=== PATIENT | female | born 1980 | race Caucasian/White ===

== ENCOUNTER → 2020-03-19 | Outpatient (CLI) | payer OTHER ==
--- NOTE | 2020-03-19 11:55 | CARD ---
MR#: [id number] Date of Study: 03/19/2020 Ordering Physician: FARIDEH LANG, Referring Physician: FARIDEH LANG, Tech: Dina Vera [facility] APPROVED REPORT EXAM: Two-dimensional and M-mode echocardiogram with Doppler and color Doppler. Other Information Quality : Good INDICATION Supraventricular Tachycardia 2D DIMENSIONS RVDd2.1 (2.9-3.5cm)Left Atrium(2D)2.8 (1.6-4.0cm) IVSd0.7 (0.7-1.1cm)Aortic Root(2D)3.0 (2.0-3.7cm) LVDd5.0 (3.9-5.9cm)LVOT Diameter2.2 (1.8-2.4cm) PWd0.7 (0.7-1.1cm)LVDs3.1 (2.5-4.0cm) FS (%) 30.0 %SV81.1 ml LVEF(%)60.0 (>50%) Aortic Valve AoV Peak Gian.135.1cm/sAoV VTI26.3cm AO Peak GR.7.3mmHgLVOT Peak Gian.117.0cm/s AO Mean GR.4mmHgAVA (VMAX)3.20cm2 ROWENA (VTI)3.40cm2 Mitral Valve MV E Tkvqzrui88.6cm/sMV DECEL SCFU468xt MV A Wjpqjejd30.9cm/sE/A Ratio1.8 Tricuspid Valve TR P. Cdgztqay040or/sRAP RRESCRYL8wjMx TR Peak Gr.59blLuXIFT67gjMe Pulmonary Vein S1 Snzetzav92.6cm/sD2 Iwvddroe87.9cm/s LEFT VENTRICLE The left ventricle is normal size. There is normal left ventricular wall thickness. The left ventricu lar systolic function is normal and the ejection fraction is within normal range. The Ejection Fracti on is 55-60%. There is normal LV segmental wall motion. The left ventricular diastolic function and f illing is normal for age. RIGHT VENTRICLE The right ventricle is normal size. The right ventricular systolic function is normal. ATRIA The left atrium size is normal. The right atrium size is normal. The interatrial septum is intact wit h no evidence for an atrial septal defect or patent foramen ovale as noted on 2-D or Doppler imaging. AORTIC VALVE The aortic valve is normal in structure and function. Doppler and Color Flow revealed no significant aortic regurgitation. There is no significant aortic valvular stenosis. MITRAL VALVE The mitral valve is functions normally. The anterior mitral valve leaflet is redundant. There is no e vidence of mitral valve prolapse. There is no mitral valve stenosis. Doppler and Color-flow revealed trace mitral regurgitation. TRICUSPID VALVE The tricuspid valve is normal in structure and function. Doppler and Color Flow revealed mild tricusp id regurgitation. The PA pressure was estimated at 25 mmHg. There is no tricuspid valve stenosis. PULMONIC VALVE The pulmonic valve is not well visualized. Doppler and Color Flow revealed no pulmonic valvular regur gitation. There is no pulmonic valvular stenosis. GREAT VESSELS The aortic root is normal in size. The ascending aorta is normal in size. The IVC is normal in size a nd collapses >50% with inspiration. PERICARDIAL EFFUSION There is no evidence of significant pericardial effusion. Critical Notification Critical Value: No <Conclusion> The left ventricle is normal size. The left ventricular systolic function is normal and the ejection fraction is within normal range. The Ejection Fraction is 55-60%. There is normal left ventricular wall thickness. Doppler and Color Flow revealed no significant aortic regurgitation. There is no significant aortic valvular stenosis. Doppler and Color-flow revealed trace mitral regurgitation. Doppler and Color Flow revealed mild tricuspid regurgitation. The PA pressure was estimated at 25 mmHg. Signed by : Julio Michelle MD Electronically Approved : 03/19/2020 11:54:41
== END | disposition home or self-care (01) ==
LOC: ECHO 09:46
PROVIDERS: ATTEND Internal Medicine Cardiovascular Disease
DX: I07.1 Rheumatic tricuspid insufficiency (principal); I47.1 Supraventricular tachycardia; Q23.8 Other congenital malformations of aortic and mitral valves
CPT/HCPCS: 93306